=== PATIENT | female | born 1945 | race Caucasian/White ===

== ENCOUNTER 2018-01-16 16:36 | Inpatient (IN) | payer MEDICARE, OTHER ==
[~2018-01-16 16:36] MED LIST: ISOVUE-370 76%-LOCM 1 ML ONE
[2018-01-16 17:04] LABS: Hemoglobin 8.2 g/dL (12.0-16.0); Mean Corpuscular HGB CONC 33.2 g/dL (32.0-36.0); Mean Corpuscular Hemoglobin 37.2 pg (27.0-31.0); Mean Platelet Volume 8.2 fL (7.4-10.4); Platelet Count 529 thou/uL (130-400); RBC Distribution Width 16.9 % (11.5-14.5); Red Blood Cell (RBC) Count 2.19 mill/uL (4.20-5.40); White Blood Cell (WBC) Count 6.9 thou/uL (4.8-10.8)
--- NOTE | 2018-01-16 17:07 | CT ---
CT OF BRAIN PERFORMED WITHOUT CONTRAST ENHANCEMENT: 01/16/18 HISTORY: Stroke activation, left arm and leg weakness, slurred speech. Ventricular and cisternal system shows some age appropriate change. There is some decreased attenuati on of the periventricular white matter. No signs of any definite evidence for acute infarct, specific ally, no abnormality seen in the right middle cerebral artery territory. No hemorrhage or mass effect . The mastoid air cells and visualized sinuses are clear. IMPRESSION: No acute intracranial abnormalities. Findings telephoned to Dr. Dixon's account management assistant. This was telephoned at 1650 hours. POS: [facility]
[2018-01-16 17:13] LABS: INR-International Normal Ratio 1.4; Prothrombin Time 17.2 SEC (12.0-14.7)
[2018-01-16 17:14] LABS: PTT 43.6 SEC (22.9-36.1)
[2018-01-16 17:19] LABS: ALT (SGPT) 10 U/L (8-55); AST (SGOT) 13 U/L (5-34); Albumin 4.1 g/dL (3.4-4.8); Alkaline Phosphatase 104 U/L (40-150); Anion Gap 13 mmol/L (10-20); BUN (Urea Nitrogen) 38 mg/dL (9.8-20.1); Bilirubin, Total 0.8 mg/dL (0.2-1.2); CK (CPK) 279 U/L (29-168); Calc. Creatinine Clearance 0 mL/min (70-130); Calcium 9.7 mg/dL (7.8-10.44); Carbon Dioxide 18 mmol/L (23-31); Chloride 103 mmol/L (98-107); Estimated GFR-MDRD 23; Globulin 4.5 g/dL (2.4-3.5); Glucose 155 mg/dL (80-115); Protein, Total 8.6 g/dL (6.0-8.3); Sodium 130 mmol/L (136-145)
[2018-01-16 17:21] LABS: Anisocytosis SLIGHT = 6-15 cells (100X) (0-5/hpf); Band 6 % (5-11); Lymphocytes 28 % (21-51); MDiff Complete? YES; Metamyelocyte 1 % (0-0); Monocytes 8 % (0-10); Neutrophil 57 % (42-75); PLT Morphology Comment Appears Increased
[2018-01-16 17:22] LABS: CKMB 2.5 ng/mL (0-6.6); Troponin I Less than 0.010 ng/mL (< 0.028)
[2018-01-16 17:55] LABS: Bilirubin Negative (Negative); Blood, Urine Large (Negative); Clarity TURBID (Clear); Glucose, Urine (Dipstick) 100 mg/dL (Negative); Leukocyte Large (Negative); Nitrite Positive (Negative); Protein, Urine (Dipstick) 100 mg/dL (Neg-Trace); pH, Urine 5.5 (5.0-9.0)
[2018-01-16 17:58] LABS: Bacteria/HPF 4+ HPF (None Seen); Hyaline Casts/LPF 4-6 HYALINE CAST LPF (0-3 Hyaline); Pathc Cast-AUWi Flag 1.52 (0-2.49); Squamous Epithelial 0-3 HPF (0-3)
--- NOTE | 2018-01-16 18:05 | RAD ---
RADIOGRAPH CHEST 1 VIEW: 01/16/18 HISTORY: 72-year-old female experiencing altered mental status. FINDINGS: There is cardiomegaly. There is no evidence of air space density, pulmonary edema, or pneumothorax. T he lateral costophrenic angles are sharp. IMPRESSION: 1) No acute pulmonary findings. 2) Cardiomegaly without congestive heart failure. glenny [] POS: [facility]
[2018-01-16] MEDS ORDERED: Piperacillin/Tazobactam 4.5 GM VIAL ONE (18:07)
[2018-01-16] MEDS ORDERED: Acetaminophen 500 MG TAB ONE (18:07)
[2018-01-16] MEDS ORDERED: Senokot 8.6 MG TAB PO PRN ×2 (18:26)
[2018-01-16] MEDS ORDERED: Ondansetron HCl/PF 4 MG/2 ML Vial IVP PRN (18:26)
[2018-01-16] MEDS ORDERED: Loratadine 10 MG TAB PO PRN (18:26)
[2018-01-16] MEDS ORDERED: Calcium Carbonate 500 MG ChewTAB PO PRN (18:26)
[2018-01-16] MEDS ORDERED: hydrALAZINE 20 MG/ML VIAL SLOW IVP PRN (18:26)
[2018-01-16] MEDS ORDERED: Nitroglycerin 0.4 MG TAB (25 Tab Bottle) SL PRN (18:26)
[2018-01-16] MEDS ORDERED: Bisacodyl 5 MG TAB PO PRN ×2 (18:26)
[2018-01-16] MEDS ORDERED: Mag-Al 1200 mg/1200 mg/30 ML UDCUP PO PRN (18:26)
[2018-01-16] MEDS ORDERED: Docusate 100 MG CAP PO PRN (18:26)
[2018-01-16] MEDS ORDERED: Benzonatate 100 MG CAP PO PRN (18:26)
[2018-01-16] MEDS ORDERED: cloNIDine 0.1 MG TAB PO PRN (18:26)
--- NOTE | 2018-01-16 18:33 | CT ---
CTA NECK WITH 3D VOLUME RENDERING CTA HEAD WITH 3D VOLUME RENDERING 01/16/18 CLINICAL HISTORY: Left upper and lower extremity weakness with slurred speech. FINDINGS: Scattered atherosclerosis is seen within the major arterial system of the neck without high grade florencio nosis or occlusion of the bilateral common or cervical internal carotid arteries. Right subclavian ar arabella is partially obscured by streak artifact from contrast, although is grossly patent. Mild calcifi cation at its proximal aspect is seen. Left subclavian artery is patent. evaluation of the bilateral vertebral arteries reveals no high grade stenosis or occlusion, with convergence into a small caliber , patent basilar artery. No high grade stenosis or occlusion involving [place]. No discrete intracranial aneurysm. There is calcification at each carotid siphon. Partial visualization of increased density at the right hilum may relate to coalescence of partially imaged vasculature although is incompletely assessed. There are a few punctate ground glass nodular o pacities at the upper lung zones, nonspecific and incompletely characterized on the basis of this exa m. There is osseous degenerative changes. IMPRESSION: Scattered atherosclerosis without high grade stenosis or occlusion involving the major arterial syste m of head and neck. Telephone call placed to ER physician, Joey Dixon at 1738 hours, 01/16/18 Code CR POS: [facility]
[2018-01-16] MEDS ORDERED: HumaLOG 300 UNITS/3 ML VIAL SC PRN (19:23)
[2018-01-16] MEDS ORDERED: Dextrose 5% in Water 1,000 ML IV PRN (19:23)
[2018-01-16] MEDS ORDERED: Dextrose 50% Abboject 50 ML SYRINGE SLOW IVP PRN (19:23)
[2018-01-16] MEDS ORDERED: VANCOMYCIN IVPB PRN (19:38)
[2018-01-16] MEDS ORDERED: PIPERACILLIN IVPB PRN (19:38)
[2018-01-16] MEDS ORDERED: TAZOBACTAM IVPB PRN (19:38)
--- NOTE | 2018-01-16 20:11 | RAD ---
LEFT HIP TWO/THREE VIEW SERIES 01/16/18 CLINICAL HISTORY: Left hip pain. FINDINGS: There is moderate osteoarthritis of the left hip. No acute fracture. Incidental note of degenerative changes of the symphysis pubis. Vascular calcifications are present. IMPRESSION: Moderate left hip joint osteoarthritis. No acute fracture. POS: [facility]
[2018-01-16 20:51] LABS: Troponin I Less than 0.010 ng/mL (< 0.028)
[2018-01-16] MEDS ORDERED: Famotidine/PF 20 mg/2ml Vial SLOW IVP SCH (21:00)
[2018-01-16] MEDS ORDERED: valACYclovir 500 MG TAB PO SCH (21:00)
[2018-01-16] MEDS ORDERED: Vancomycin HCl 1 GM in Premix Bag 1 BAG IVPB SCH (21:00)
[2018-01-16 23:58] LABS: Troponin I 0.012 ng/mL (< 0.028)
[2018-01-17] MEDS: Atorvastatin Calcium 10 MG TAB PO SCH ×2 (01:08→21:43)
[2018-01-17] MEDS: Heparin 5,000 UNITS/ML VIAL SC SCH ×3 (01:08→21:43)
[2018-01-17] MEDS ORDERED: Vancomycin HCl 1 GM in Premix Bag 1 BAG IVPB SCH ×2 (01:15→20:00)
[2018-01-17] MEDS: Sodium Chloride 0.9% 1,000 ML IV SCH ×4 (01:38→21:04)
[2018-01-17] MEDS: Piperacillin/Tazobactam 2.25 GM in Sodium Chloride 0.9% 100 ML IVPB SCH ×4 (01:51→21:08)
[2018-01-17 02:23] VITALS: BMI 34.9
[2018-01-17] MEDS: traMADol HCl 50 MG TAB PO PRN ×3 (02:49→15:42)
[2018-01-17 06:41] LABS: Hemoglobin 6.1 g/dL (12.0-16.0); Mean Corpuscular HGB CONC 34.7 g/dL (32.0-36.0); Mean Corpuscular Hemoglobin 37.7 pg (27.0-31.0); Mean Platelet Volume 8.1 fL (7.4-10.4); Platelet Count 408 thou/uL (130-400); RBC Distribution Width 16.8 % (11.5-14.5); Red Blood Cell (RBC) Count 1.61 mill/uL (4.20-5.40); White Blood Cell (WBC) Count 4.3 thou/uL (4.8-10.8)
[2018-01-17 06:51] LABS: ALT (SGPT) 12 U/L (8-55); AST (SGOT) 20 U/L (5-34); Albumin 3.2 g/dL (3.4-4.8); Alkaline Phosphatase 88 U/L (40-150); Anion Gap 12 mmol/L (10-20); BUN (Urea Nitrogen) 33 mg/dL (9.8-20.1); Bilirubin, Total 0.7 mg/dL (0.2-1.2); Calc. Creatinine Clearance 47 mL/min (70-130); Calcium 8.6 mg/dL (7.8-10.44); Carbon Dioxide 17 mmol/L (23-31); Chloride 107 mmol/L (98-107); Estimated GFR-MDRD 27; Globulin 3.6 g/dL (2.4-3.5); Glucose 129 mg/dL (80-115); Potassium 3.5 mmol/L (3.5-5.1); Protein, Total 6.8 g/dL (6.0-8.3); Sodium 132 mmol/L (136-145)
[2018-01-17 07:27] LABS: Band 23 % (5-11); Bite Cells SLIGHT = 2-5 cells (100X) (0-1/hpf); Lymphocytes 24 % (21-51); MDiff Complete? YES; Monocytes 14 % (0-10); Neutrophil 38 % (42-75); PLT Morphology Comment Appears Increased; Polychromasia SLIGHT = 2-3 cells (100X) (0-2/hpf); Reactive Lymphocytes 1 % (0-10)
--- NOTE | 2018-01-17 07:51 | HP ---
PRIMARY CARE PHYSICIAN: Dr. Lopez De La Torre, Donny. CHIEF COMPLAINT: Altered mental status and unilateral weakness. HISTORY OF PRESENT ILLNESS: Ms. Phelps is a pleasant 72-year-old female with past me dical history of Hodgkin's lymphoma, status post chemotherapy over at [facility], as well as histo ry of atrial fibrillation and DVT of upper extremity as well as pulmonary embolism during chemotherap y who presented to the emergency room with above-mentioned complaints. History is mainly obtained by the patient herself who is more awake and alert, but it is also supplemented by family members as th e patient is still quite weak. According to the family members, she was at her baseline day before yesterday. They have noticed ria t she has been complaining of headache on and off for the last 6 weeks or so. Family went to check o n her today and she was found sitting in her chair facing the wall, immobile and staring into space a nd altered. She was not able to answer their questions or The patient's family also reported that she was found to have left-sided weakness including arm and l eg as well as numbness and difficulty speaking around 13:30 today. Symptoms improved by the time she was brought to the emergency room, but since then she has waxing and waning of her speech problems a nd left-sided weakness. Her NIH score initially was 7 and now it is 10. However, her altered mental status has completely resolved and she is awake, alert, oriented x3. She does endorse some increase d frequency, but denies any other recent illnesses. She was treated for a urinary tract infection ab out 2 months ago and has history of renal stones. 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 In regards to her lymphoma, she follo ws up at [facility] and is scheduled to get a follow up next month. There is a new adrenal mass r eportedly. In the emergency room upon presentation, she was febrile with a temperature of 101 and tachycardic in the 110s. Her workup included basic lab work which showed hemoglobin of 8.2 and serum chemistry wit h BUN 38, creatinine 2.13. Her urinalysis was consistent with urinary tract infection. Various imag ing studies were done including a CT scan of the brain and CT angiogram of the head which were both u nremarkable. Scattered atherosclerosis was seen in the major arteries of the head. Chest x-ray was unremarkable as well. She was in the ER, she was given IV antibiotic as well as IV fluids, namely vancomycin and Zosyn as w ell as aspirin in the emergency room. Shortly after receiving fluids, her mentation has improved. S he is now being admitted to stroke floor for altered mental status: Rule out cerebrovascular acciden t as well as sepsis secondary to urinary tract infection. PAST MEDICAL HISTORY: 1. Hypertension. 2. History of Hodgkin's lymphoma status post chemotherapy 5 years ago as well as stem cell transplan tation. Follows up at [facility]. 3. History of atrial fibrillation. 4. History of pulmonary embolism during chemotherapy. 5. History of DVT of upper extremity during chemotherapy. 6. Osteopenia. 7. Obesity. 8. Diabetes mellitus type 2. 9. History of hypokalemia. 10. Kidney stones. PAST SURGICAL HISTORY: 1. Lithotripsy multiple times. 2. Cholecystectomy. 3. Hysterectomy. PSYCHIATRIC HISTORY: Depression. SOCIAL HISTORY: She lives at home alone and is otherwise mobile. No history of drug, tobacco or alc ohol abuse. FAMILY HISTORY: No significant family history of premature coronary artery disease or stroke. ALLERGIES: CODEINE, LISINOPRIL, MEPERIDINE. CURRENT MEDICATIONS: Biotin 2500 mcg 2 tablets daily, turmeric once a day, Zofran as needed, potassi um chloride 10 mEq b.i.d., dicyclomine 20 mg q.6 hours p.r.n., tramadol every 50 mg q.6 hours p.r.n., glipizide 5 mg daily, vitamin D daily, Advil every day as needed for headache. REVIEW OF SYSTEMS: The following complete review of systems was negative, unless otherwise mentioned in the HPI or below: Constitutional: Weight loss or gain, ability to conduct usual activities. Sk in: Rash, itching. Eyes: Double vision, pain. ENT/Mouth: Nose bleeding, neck stiffness, pain, te nderness. Cardiovascular: Palpitations, dyspnea on exertion, orthopnea. Respiratory: Shortness of breath, wheezing, cough, hemoptysis, fever or night sweats. Gastrointestinal: Poor appetite, abdom inal pain, heartburn, nausea, vomiting, constipation, or diarrhea. Genitourinary: Urgency, frequenc y, dysuria, nocturia. Musculoskeletal: Pain, swelling. Neurologic/Psychiatric: Anxiety, depressio n. Allergy/Immunologic: Skin rash, bleeding tendency. LABORATORY: CBC shows WBC 6.9 without any left shift, platelet of 529, hemoglobin 8.2, hematocrit 24 .5. Serum chemistry shows sodium 130, bicarbonate 18, BUN 38, creatinine 2.13, blood sugar 155. Lac tic acid 2.0. Creatinine kinase 279. Cardiac enzymes normal. BNP 107. Urinalysis showed proteinur ia, glucosuria, blood, nitrite, leukocyte esterase, and multiple bacteria. CT scan of the brain by m y review is negative for any acute intracranial abnormalities. CT angio of [place] whic h showed scattered atherosclerosis without high-grade stenosis or occlusion involving the major arter ial system of head and neck. Chest x-ray by my review is negative for any pulmonary effusion, edema or infiltrate. Cardiomegaly is seen. PHYSICAL EXAMINATION: VITAL SIGNS: Upon presentation, heart rate 109, blood pressure 130/48, respirations 20, temperature 101.6, saturating 100% on room air. GENERAL: No acute distress. She appears pale, but is able to follow simple commands. Opens her eye s and answers the questions appropriately. She is able to state her name and where she is and the da te almost correct. HEENT: Mucous membranes are slightly dry. No oropharyngeal exudate or erythema. Head is normocepha lic, atraumatic. Pupils equal, reactive to light and accommodation. Extraocular movement intact. NECK: Supple without any lymphadenopathy, JVD or bruit. CHEST: Clear to auscultation without any wheezing, rales or rhonchi. Rate and rhythm is regular wit hout any murmur, rubs or gallops. ABDOMEN: Soft, nontender, nondistended, positive bowel sounds. EXTREMITIES: Free of any cyanosis, clubbing, or edema. NEUROLOGIC: The patient's speech is quite clear at this time. Cranial nerves II-XII grossly intact. She does have some sensory deficits, but they vary during my examination. She does have definitive left upper arm weakness. Her strength is about 2/5 in left arm and forearm and hand. Bilateral low er extremity weakness, left more than right, has also noticed. PSYCHIATRIC: Normal affect. SKIN: Free of any rashes or bruises. I feel warm and dry to touch. CODE STATUS: FULL CODE. Discussed with the patient and her family present in the room. IMPRESSION AND PLAN: 1. Left-sided weakness and dysarthria. The patient most likely has suffered acute stroke. We will admit her to the stroke floor and continue with a daily dose of aspirin. We will initiate stroke pro tocol with stroke team as well as Neurology consultations and obtain MRI of the brain along with a ca rotid Doppler ultrasound, and transthoracic echocardiogram. Also check a lipid panel and start her o n cholesterol medications. We will start her on statins. OT, PT as well as speech evaluation will b e initiated as well. She will be on telemetry monitoring. 2. Sepsis secondary to urinary tract infection. Given the patient's history of Hodgkin's lymphoma a nd chemotherapy: We will treat her with broad spectrum IV antibiotics until the cultures are resulte d. She has received vancomycin and Zosyn in the Emergency Room, but seems to have some reaction to v ancomycin. We will stop the vancomycin for now and continue with Zosyn. Urine culture and blood cul ture have been obtained. The patient does not seem to have any evidence to suggest pneumonia or bindu rointestinal illness. Most likely source is urine at this time. Continue with generous IV fluid hyd ration. We will recheck labs in the morning. 3. Acute renal insufficiency. It seems like the patient has been seen by Nephrology in the past. S he most likely has chronic kidney disease. She has also been taking Advil on an almost daily basis. The patient is instructed to stop any nonsteroidal anti-inflammatory drugs at this time. We will mo nitor her renal function. She has received contrast in the emergency room, and we will avoid any fur ther nephrotoxic medications at this time. 4. Altered mental status. It seems multifactorial at this time. She clearly has sepsis secondary t o urinary tract infection and she will also be worked up for cerebrovascular accident rule out at thi s time. 5. Hyponatremia, mild, most likely secondary to poor p.o. intake and dehydration. We will continue the IV fluids and monitor. 6. Macrocytic anemia. The patient does not seem to be on any supplements. This will be monitored c losely and we will transfuse if hemoglobin is less than 7. Further workup will be carried out in the outpatient setting. 7. History of Hodgkin's lymphoma with a new adrenal mass. I do not have access to the records from [facility]. At this time, she will continue to follow up at [facility]. She seems to be on Valtrex, which most likely is a prophylactic medication for her. We will continue that for now. She is also on Diflucan, which we will continue as well. 8. History of hypertension. The patient's blood pressure is currently controlled. We will add p.r. n. antihypertensive. She does not seem to be on any medication for the blood pressure. 9. Diabetes mellitus type 2. She takes glipizide which we will resume once her oral intake is adequ ate. For now, we will cover her with insulin sliding scale with frequent Accu-Cheks. 10. Deep venous thrombosis and gastrointestinal prophylaxis. We will use heparin in the light of ac brian on chronic kidney disease. 11. Code status: FULL CODE. Discussed with the patient. 12. Add pain medication orders and supportive care. DISPOSITION: Ms. Phelps is currently being admitted to stroke floor for rule out CVA as well a s for treatment of sepsis. Estimated length of stay is at least 2-3 midnight. Further management wi ll depend upon her clinical course.
[2018-01-17] MEDS ORDERED: Fluconazole 100 MG TAB PO SCH ×2 (09:00→11:30)
[2018-01-17] MEDS: Aspirin 325 mg Enteric Coated Tablet PO SCH (10:10)
[2018-01-17] MEDS: Pantoprazole 40 MG VIAL IVP SCH (10:11)
--- NOTE | 2018-01-17 13:21 | PDOC.PN ---
- Subjective Encounter Start Date: 01/17/18 Encounter Start Time: 13:16 Subjective: feels OK.No new complaints but very sleepy -: family at bedisde & report that she is not moving left side - Objective Resuscitation Status: Resuscitation Status FULL:Full Resuscitation MAR Reviewed: Yes Vital Signs & Weight: Vital Signs (12 hours) Temp Pulse Pulse Pulse Pulse Resp BP 01/17/18 12:24 100.1 F H 88 18 01/17/18 11:51 100.5 F H 92 20 01/17/18 08:20 100.1 F H 90 18 01/17/18 07:52 100.8 F H 90 20 01/17/18 07:34 88 88 151/59 H 01/17/18 03:02 100.1 F H 101 H 18 BP BP BP Pulse Ox 01/17/18 12:24 129/53 L 01/17/18 11:51 137/50 L 98 01/17/18 08:20 97 01/17/18 07:52 151/59 H 99 01/17/18 07:34 135/53 L 01/17/18 03:02 149/65 H 94 L Weight Admit Weight 229 lb 9.6 oz Weight 229 lb 9.6 oz I&O: 01/16/18 01/17/18 01/18/18 06:59 06:59 06:59 Intake Total 1250 0 Balance 1250 0 Result Diagrams: 01/17/18 05:44 01/17/18 05:44 Additional Labs: Accuchecks 01/17/18 01/17/18 11:11 05:52 POC Glucose 125 H 150 H Microbiology 01/16/18 17:45 Urine Straight Catheter Urine Culture - Preliminary Presumptive Kleb/Enterobacter 01/16/18 17:22 Venous blood - Right Hand Blood Culture - Preliminary Specimen has been received and culture in progress. No Growth to date. 01/16/18 17:22 Venous blood - Left Hand Blood Culture - Preliminary Specimen has been received and culture in progress. No Growth to date. Laboratory Tests 01/16/18 01/16/18 01/16/18 16:56 16:56 20:19 Creatinine 2.13 H Troponin I Less than 0.010 Less than 0.010 01/16/18 01/17/18 23:23 05:44 Creatinine 1.83 H Troponin I 0.012 Phys Exam - Physical Examination Constitutional: NAD pale HEENT: PERRLA, moist MMs, sclera anicteric, oral pharynx no lesions Neck: no JVD Respiratory: no wheezing, no rales, no rhonchi, clear to auscultation bilateral Cardiovascular: RRR, no significant murmur Gastrointestinal: soft, non-tender, no distention, positive bowel sounds Musculoskeletal: no edema, pulses present Neurological: non-focal, normal sensation, moves all 4 limbs Psychiatric: normal affect, A&O x 3 Skin: no rash Dx/Plan (1) Anemia Code(s): D64.9 - ANEMIA, UNSPECIFIED Status: Acute Qualifiers: Anemia type: bone marrow failure Bone marrow failure anemia type: other bone marrow failure Qualified Code(s): D61.89 - Other specified aplastic anemias and other bone marrow failure syndromes Comment: Acute drop.taz acute on chronic (2) Sepsis Code(s): A41.9 - SEPSIS, UNSPECIFIED ORGANISM Status: Acute (3) Altered mental status Code(s): R41.82 - ALTERED MENTAL STATUS, UNSPECIFIED Status: Acute Comment: Taz due to Sepsis.. (4) UTI (urinary tract infection) Status: Acute Qualifiers: Urinary tract infection type: acute cystitis Hematuria presence: with hematuria Qualified Code(s): N30.01 - Acute cystitis with hematuria (5) FELIX (acute kidney injury) Code(s): N17.9 - ACUTE KIDNEY FAILURE, UNSPECIFIED Status: Acute (6) Hodgkin lymphoma Code(s): C81.90 - HODGKIN LYMPHOMA, UNSPECIFIED, UNSPECIFIED SITE Status: Chronic Qualifiers: Hodgkin lymphoma type: unspecified type (7) Left-sided weakness Code(s): R53.1 - WEAKNESS Status: Acute - Plan continue antibiotics, PT/OT, respiratory therapy, incentive spirometry, out of bed/ambulate, DVT proph w/SCDs Transfuse 2 units PRBC,taz BM failure from Hodgkins.Check FOBT -: Cont Zosyn and vancomycin.Taz d/t UTI.Follow Cx results -: check LE to r/o DVT as h/o PE/DVT. -: MRI pending.cont stroke protocol w ASA+statin.Neurology recs pending -: Daily labs. Supportive care.OT/PT/FUR TANNER * . Review of Systems - Review of Systems Constitutional: weakness, malaise. negative: fever, chills, sweats, other ENT: negative: Ear Pain, Ear Discharge, Nose Pain, Nose Discharge, Nose Congestion, Mouth Pain, Mouth Swelling, Throat Pain, Throat Swelling, Other Respiratory: negative: Cough, Dry, Shortness of Breath, Hemoptysis, SOB with Excertion, Pleuritic Pain, Sputum, Wheezing Cardiovascular: negative: chest pain, palpitations, orthopnea, paroxysmal nocturnal dyspnea, edema, light headedness, other Gastrointestinal: negative: Nausea, Vomiting, Abdominal Pain, Diarrhea, Constipation, Melena, Hematochezia, Other Genitourinary: negative: Dysuria, Frequency, Incontinence, Hematuria, Retention , Other Musculoskeletal: negative: Neck Pain, Shoulder Pain, Arm Pain, Back Pain, Hand Pain, Leg Pain, Foot Pain, Other Skin: negative: Rash, Lesions, Gennaro, Bruising, Other Neurological: negative: Weakness, Numbness, Incoordination, Change in Speech, Confusion, Seizures, Other - Medications/Allergies Allergies/Adverse Reactions: Allergies Allergy/AdvReac Type Severity Reaction Status Date / Time bleomycin Allergy Verified 01/17/18 05:50 codeine Allergy Verified 01/17/18 02:05 lisinopril Allergy Verified 01/17/18 02:05 meperidine [From Demerol] Allergy Verified 01/17/18 02:05 Medications: Current Medications Acetaminophen (Tylenol) 650 mg PO Q4H PRN PRN Reason: Headache/Fever or Pain Al Hydroxide/Mg Hydroxide (Maalox) 30 ml PO Q6H PRN PRN Reason: Heartburn or Indigestion Aspirin (Ecotrin) 325 mg PO DAILY [facility] Last Admin: 01/17/18 10:10 Dose: 325 mg Atorvastatin Calcium (Lipitor) 10 mg PO HS [facility] Last Admin: 01/17/18 01:08 Dose: 10 mg Benzonatate (Tessalon) 100 mg PO Q4H PRN PRN Reason: Cough Bisacodyl (Dulcolax) 10 mg PO DAILYPRN PRN PRN Reason: Constipation Calcium Carbonate (Tums) 1,000 mg PO Q4H PRN PRN Reason: Heartburn or Indigestion Clonidine (Catapres) 0.1 mg PO Q4H PRN PRN Reason: Systolic BP > 160 Dextrose/Water (Dextrose 50%) 25 gm SLOW IVP PRN PRN PRN Reason: Hypoglycemia Docusate Sodium (Colace) 100 mg PO BIDPRN PRN PRN Reason: Constipation Fluconazole (Diflucan) 100 mg PO DAILY [facility] Glucagon (Glucagon) 1 mg IM PRN PRN PRN Reason: Hypoglycemia Guaifenesin (Robitussin Sf) 200 mg PO Q4H PRN PRN Reason: Cough Heparin Sodium (Porcine) (Heparin) 5,000 units SC BID [facility] Last Admin: 01/17/18 10:11 Dose: 5,000 units Hydralazine HCl (Apresoline) 10 mg SLOW IVP Q4H PRN PRN Reason: Systolic BP > 170 Sodium Chloride (Normal Saline 0.9%) 1,000 mls @ 100 mls/hr IV .Q10H [facility] Last Admin: 01/17/18 06:42 Dose: Not Given Piperacillin Sod/Tazobactam (Sod 2.25 gm/ Sodium Chloride) 100 mls @ 200 mls/ hr IVPB Q6HR [facility] Last Admin: 01/17/18 06:44 Dose: 100 mls Dextrose/Water (D5w) 1,000 mls @ 0 mls/hr IV .Q0M PRN; As Directed PRN Reason: Hypoglycemia Insulin Human Lispro (Humalog) 0 units SC .MODERATE SLIDING SC PRN PRN Reason: Moderate Correctional Scale Insulin Human Lispro (Humalog) 0 units SC .BEDTIME SLIDING SC PRN PRN Reason: Bedtime Correctional Scale Loratadine (Claritin) 10 mg PO DAILYPRN PRN PRN Reason: Sinus Symptoms Miscellaneous Medication (Pharmacy To Dose) 1 each IVPB PRN PRN PRN Reason: UTI Nitroglycerin (Nitrostat) 0.4 mg SL Q5MIN PRN PRN Reason: Chest Pain Ondansetron HCl (Zofran) 4 mg IVP Q6H PRN PRN Reason: Nausea/Vomiting Pantoprazole Sodium (Protonix) 40 mg IVP DAILY [facility] Last Admin: 01/17/18 10:11 Dose: 40 mg Senna (Senokot) 2 tab PO HSPRN PRN PRN Reason: Constipation Sodium Chloride (Flush - Normal Saline) 10 ml IV DAILY [facility] Last Admin: 01/17/18 10:12 Dose: Not Given Tramadol HCl (Ultram) 50 mg PO Q6H PRN PRN Reason: Pain >3 Last Admin: 01/17/18 10:10 Dose: 50 mg
--- NOTE | 2018-01-17 15:17 | ULT ---
BILATERAL LOWER EXTREMITY VENOUS DOPPLER ULTRASOUND: HISTORY: Bilateral leg pain. TECHNIQUE: Emanuel scale ultrasound with color flow and spectral Doppler imaging of the deep venous systems of the lower extremities performed bilaterally. FINDINGS: There is good flow, compression, and augmentation seen in the common femoral, femoral, deep femoral, popliteal, posterior tibial, and greater saphenous veins on either side. IMPRESSION: No evidence of deep vein thrombosis in either lower extremity. POS: OFF
--- NOTE | 2018-01-17 19:54 | CON ---
DATE OF CONSULTATION: 01/17/2018 REFERRING PROVIDER: Dr. Mireille Uribe. REASON FOR CONSULTATION: Altered mental status. HISTORY OF PRESENT ILLNESS: Ms. Phelps is a pleasant 72-year-old female who has been concerned for evaluation of altered mental status. History is obtained from patient's medical chart as patient is not able to provide and there are no family members present at bedside. Apparently, maci cheng patient has a history of Hodgkin's lymphoma for which she has undergone chemotherapy. She has als o developed atrial fibrillation and DVT of upper extremity and pulmonary embolism during chemotherapy . She was brought in by her family members after she was noted to be confused. Per dictated H&P not e, patient was at her baseline on day before admission, family had found her sitting on chair facing the wall immobile and staring into space and altered. She was not able to answer their questions. Maci mai also felt that she was somewhat weak on her left side and had difficulty with talking, which prom pted them to bring her to the [facility]. Since being here, her symptoms are waxing a nd waning and that she becomes more alert and then becomes very drowsy and lethargic. On admission, she is noted to have urinary tract infection and anemia for which she is undergoing blood transfusion . Per nurse assisting of the patient, there has not been any seizure type activity noted. Nurse rep orted that she is weak all over. She does wake up to verbal stimuli, but goes back to sleep. Past medical history, past surgical history, social history, family history, current medications, and allergies are reviewed from patient's dictated H&P note done by Dr. Mireille Uribe. REVIEW OF SYSTEMS: Unable to perform. PHYSICAL EXAMINATION: VITAL SIGNS: Blood pressure of 129/53, pulse of 92, temperature of 100.1, respirations of 18, O2 sat s of 98% on room air, T-max of 100.8. GENERAL: Drowsy and lethargic appearing female in no apparent distress. RESPIRATORY: Clear to auscultation bilaterally. CARDIOVASCULAR: Regular rate and rhythm. NEUROLOGIC: Mental status: The patient is drowsy appearing. She is very lethargic. She does wake up to verbal stimuli, but goes back to sleep within seconds. She is able to state her first and last name. She is able to state her age. She does not follow any commands. Her speech appeared clear w hen she did say a few words. Cranial nerves: Pupils are 3 mm and reactive. Face appears symmetric. Motor exam showed normal tone and bulk. She spontaneously moves both upper and lower extremities. She appeared weak all over. Gait, Romberg coordination could not be tested. LABORATORY DATA: Reviewed, which included CBC, coag panel, CMP, urinalysis, which is significant for WBC of 4.3, hemoglobin 6.1, hematocrit 17.5, platelet count of 408. PT of 17.2, INR 1.4, PTT of 43. 6. Sodium 132, BUN of 33, creatinine of 1.83. Urinalysis showed too numerous to count wbc's, large leukocyte esterase, positive nitrites and 4+ bacteria. Urine culture was positive for Klebsiella and Enterobacter. Blood cultures have been negative. IMAGING STUDIES: CT head without contrast was reviewed which showed no acute intracranial abnormalit y. CT angiogram of the head and neck were reviewed, which showed no intracranial or extracranial vas cular abnormality. IMPRESSION: 1. Altered mental status, likely toxic metabolic encephalopathy. 2. Urinary tract infection. 3. Sepsis. PLAN: Ms. Phelps is a 72-year-old female who has presented with altered mental statu s and possible left-sided weakness. On my exam, I did not appreciate any focal weakness; in my opini on, she is weak all over. Her confusion and generalized weakness is likely secondary to multifactori al that includes urinary tract infection, anemia, acute renal insufficiency. I would recommend adalberto nuing current medical management. Obtain MRI brain without contrast when medically stable. Continue supportive care. Thank you for consultation.
[2018-01-18] MEDS: Piperacillin/Tazobactam 2.25 GM in Sodium Chloride 0.9% 100 ML IVPB SCH ×4 (00:46→17:33)
[2018-01-18 05:24] LABS: Anion Gap 15 mmol/L (10-20); BUN (Urea Nitrogen) 28 mg/dL (9.8-20.1); Calc. Creatinine Clearance 53 mL/min (70-130); Calcium 8.5 mg/dL (7.8-10.44); Carbon Dioxide 16 mmol/L (23-31); Chloride 106 mmol/L (98-107); Estimated GFR-MDRD 32; Glucose 79 mg/dL (83-110); Potassium 3.5 mmol/L (3.5-5.1); Sodium 133 mmol/L (136-145)
[2018-01-18] MEDS: Diabetic Tussin 200 MG/10 ML UDCUP PO PRN (05:26)
[2018-01-18 06:16] LABS: Anisocytosis MODERATE=16-30 cells (100X) (0-5/hpf); Band 11 % (5-11); Hemoglobin 8.3 g/dL (12.0-16.0); Lymphocytes 32 % (21-51); MDiff Complete? YES; Mean Corpuscular HGB CONC 35.3 g/dL (32.0-36.0); Mean Corpuscular Hemoglobin 35.9 pg (27.0-31.0); Mean Platelet Volume 8.2 fL (7.4-10.4); Monocytes 12 % (0-10); Neutrophil 44 % (42-75); Platelet Count 413 thou/uL (130-400); RBC Distribution Width 19.5 % (11.5-14.5); Red Blood Cell (RBC) Count 2.32 mill/uL (4.20-5.40); White Blood Cell (WBC) Count 3.9 thou/uL (4.8-10.8)
[2018-01-18] MEDS: Aspirin 325 mg Enteric Coated Tablet PO SCH (09:34)
[2018-01-18] MEDS: Heparin 5,000 UNITS/ML VIAL SC SCH ×2 (09:34→20:55)
[2018-01-18] MEDS: Fluconazole 100 MG TAB PO SCH (09:34)
[2018-01-18] MEDS: Pantoprazole 40 MG VIAL IVP SCH (09:35)
--- NOTE | 2018-01-18 10:35 | MRI ---
MRI BRAIN: HISTORY: Left arm and leg weakness. FINDINGS: Noncontrast-enhanced brain MRI images obtained at 9:11 a.m. on 01/17/18. Images were sent to [facility] for radiology interpretation at 9:15 a.m. on 01/18/18. Noncontrast-enhanced MRI images of the brain obtained. Images demonstrate areas of signal abnormality in the right frontal, right parietal, and right occipi mukesh and temporooccipital regions. This is compatible with a watershed distribution area of infarctio n. No other intracranial masses or lesions seen. Normal flow voids seen in the major intracranial vessels. IMPRESSION: Acute right watershed distribution area of infarction. Findings called to Félix, the patient's nurse in the stroke unit, at 9:24 a.m. on 01/18/18. CODE CR POS: ALEK
--- NOTE | 2018-01-18 11:05 | PDOC.PN ---
- Subjective Encounter Start Date: 01/18/18 Encounter Start Time: 11:03 Subjective: feels a little better.still not bale to move left arm -: left hand moves a little better -: daughter reports on and off confusion - Objective Resuscitation Status: Resuscitation Status FULL:Full Resuscitation Vital Signs & Weight: Vital Signs (12 hours) Temp Pulse Resp BP Pulse Ox 01/18/18 09:35 99.5 F 87 14 97 01/18/18 07:44 99.5 F 87 14 142/67 H 97 01/18/18 05:33 97 01/18/18 03:56 99.4 F 97 20 136/57 L 97 01/18/18 00:00 98.2 F 90 16 156/75 H 96 Weight Admit Weight 229 lb 9.6 oz Weight 229 lb 9.6 oz I&O: 01/17/18 01/18/18 01/19/18 06:59 06:59 06:59 Intake Total 1250 1000 2137 Balance 1250 1000 2137 Result Diagrams: 01/18/18 04:48 01/18/18 04:48 Additional Labs: Accuchecks 01/18/18 01/17/18 01/17/18 05:24 20:51 16:25 POC Glucose 87 105 100 01/17/18 11:11 POC Glucose 125 H Microbiology 01/16/18 17:45 Urine Straight Catheter Urine Culture - Preliminary Presumptive Kleb/Enterobacter 01/16/18 17:22 Venous blood - Right Hand Blood Culture - Preliminary Coagulase Neg Staphylococcus 01/16/18 17:22 Venous blood - Left Hand Blood Culture - Preliminary Specimen has been received and culture in progress. No Growth to date. Radiology Reviewed by me: Yes (Brain MRI-watershed infract R cerebral cortex) Phys Exam - Physical Examination Constitutional: NAD awake but sleepy.pale HEENT: PERRLA, moist MMs, sclera anicteric, oral pharynx no lesions Neck: no JVD Respiratory: no wheezing, no rales, no rhonchi, clear to auscultation bilateral Cardiovascular: RRR, no significant murmur Gastrointestinal: soft, non-tender, no distention, positive bowel sounds Musculoskeletal: no edema, pulses present left arm and leg weakness,delirium improved Psychiatric: normal affect, A&O x 3 Skin: no rash Dx/Plan (1) Acute CVA (cerebrovascular accident) Code(s): I63.9 - CEREBRAL INFARCTION, UNSPECIFIED Status: Acute Comment: Watershed infarct ,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 (2) UTI (urinary tract infection) Status: Acute Qualifiers: Urinary tract infection type: acute cystitis Hematuria presence: with hematuria Qualified Code(s): N30.01 - Acute cystitis with hematuria (3) FELIX (acute kidney injury) Code(s): N17.9 - ACUTE KIDNEY FAILURE, UNSPECIFIED Status: Acute (4) Sepsis Code(s): A41.9 - SEPSIS, UNSPECIFIED ORGANISM Status: Acute (5) Anemia Code(s): D64.9 - ANEMIA, UNSPECIFIED Status: Resolved Qualifiers: Anemia type: bone marrow failure Bone marrow failure anemia type: other bone marrow failure Qualified Code(s): D61.89 - Other specified aplastic anemias and other bone marrow failure syndromes Comment: Improved with PRBC.monitor.Taz acute on Chronic given H/O Hodgkins (6) Altered mental status Code(s): R41.82 - ALTERED MENTAL STATUS, UNSPECIFIED Status: Resolved Comment: Likcoreen due to Sepsis.. (7) Hodgkin lymphoma Code(s): C81.90 - HODGKIN LYMPHOMA, UNSPECIFIED, UNSPECIFIED SITE Status: Chronic Qualifiers: Hodgkin lymphoma type: unspecified type (8) Left-sided weakness Code(s): R53.1 - WEAKNESS Status: Acute - Plan plan discussed w/ family, continue antibiotics, PT/OT, social psychologist, speech therapy, out of bed/ambulate, DVT proph w/SCDs Cont ASA,statin.Avoid hypotensive episodes.Serial H/H -: cont Zosyn for UTI w Klebseilla & Enterobacter.Final Cx pending -: 10/08 blood Cx taz contaminated.follow final results -: Omncology f/u Saturday at [facility]. -: taz DC by Saturday w HH/rehab * .DC IVF as ECHO shows Diatolic dysfunction * Hemodynamically stable. * Renal Fx improving.monitor Review of Systems - Review of Systems Constitutional: weakness, malaise Eyes: negative: Pain, Vision Change, Conjunctivae Inflammation, Eyelid Inflammation, Redness, Other ENT: negative: Ear Pain, Ear Discharge, Nose Pain, Nose Discharge, Nose Congestion, Mouth Pain, Mouth Swelling, Throat Pain, Throat Swelling, Other Respiratory: negative: Cough, Dry, Shortness of Breath, Hemoptysis, SOB with Excertion, Pleuritic Pain, Sputum, Wheezing Cardiovascular: negative: chest pain, palpitations, orthopnea, paroxysmal nocturnal dyspnea, edema, light headedness, other Gastrointestinal: negative: Nausea, Vomiting, Abdominal Pain, Diarrhea, Constipation, Melena, Hematochezia, Other Genitourinary: negative: Dysuria, Frequency, Incontinence, Hematuria, Retention , Other Musculoskeletal: negative: Neck Pain, Shoulder Pain, Arm Pain, Back Pain, Hand Pain, Leg Pain, Foot Pain, Other Skin: negative: Rash, Lesions, Gennaro, Bruising, Other Neurological: Weakness - Medications/Allergies Allergies/Adverse Reactions: Allergies Allergy/AdvReac Type Severity Reaction Status Date / Time bleomycin Allergy Verified 01/17/18 05:50 codeine Allergy Verified 01/17/18 02:05 lisinopril Allergy Verified 01/17/18 02:05 meperidine [From Demerol] Allergy Verified 01/17/18 02:05 Medications: Current Medications Acetaminophen (Tylenol) 650 mg PO Q4H PRN PRN Reason: Headache/Fever or Pain Al Hydroxide/Mg Hydroxide (Maalox) 30 ml PO Q6H PRN PRN Reason: Heartburn or Indigestion Aspirin (Ecotrin) 325 mg PO DAILY [facility] Last Admin: 01/18/18 09:34 Dose: 325 mg Atorvastatin Calcium (Lipitor) 10 mg PO HS [facility] Last Admin: 01/17/18 21:43 Dose: 10 mg Benzonatate (Tessalon) 100 mg PO Q4H PRN PRN Reason: Cough Bisacodyl (Dulcolax) 10 mg PO DAILYPRN PRN PRN Reason: Constipation Calcium Carbonate (Tums) 1,000 mg PO Q4H PRN PRN Reason: Heartburn or Indigestion Clonidine (Catapres) 0.1 mg PO Q4H PRN PRN Reason: Systolic BP > 160 Dextrose/Water (Dextrose 50%) 25 gm SLOW IVP PRN PRN PRN Reason: Hypoglycemia Docusate Sodium (Colace) 100 mg PO BIDPRN PRN PRN Reason: Constipation Fluconazole (Diflucan) 100 mg PO DAILY [facility] Last Admin: 01/18/18 09:34 Dose: 100 mg Glucagon (Glucagon) 1 mg IM PRN PRN PRN Reason: Hypoglycemia Guaifenesin (Robitussin Sf) 200 mg PO Q4H PRN PRN Reason: Cough Last Admin: 01/18/18 05:26 Dose: 200 mg Heparin Sodium (Porcine) (Heparin) 5,000 units SC BID [facility] Last Admin: 01/18/18 09:34 Dose: 5,000 units Hydralazine HCl (Apresoline) 10 mg SLOW IVP Q4H PRN PRN Reason: Systolic BP > 170 Piperacillin Sod/Tazobactam (Sod 2.25 gm/ Sodium Chloride) 100 mls @ 200 mls/ hr IVPB Q6HR [facility] Last Admin: 01/18/18 05:25 Dose: 100 mls Dextrose/Water (D5w) 1,000 mls @ 0 mls/hr IV .Q0M PRN; As Directed PRN Reason: Hypoglycemia Insulin Human Lispro (Humalog) 0 units SC .MODERATE SLIDING SC PRN PRN Reason: Moderate Correctional Scale Insulin Human Lispro (Humalog) 0 units SC .BEDTIME SLIDING SC PRN PRN Reason: Bedtime Correctional Scale Loratadine (Claritin) 10 mg PO DAILYPRN PRN PRN Reason: Sinus Symptoms Miscellaneous Medication (Pharmacy To Dose) 1 each IVPB PRN PRN PRN Reason: UTI Nitroglycerin (Nitrostat) 0.4 mg SL Q5MIN PRN PRN Reason: Chest Pain Ondansetron HCl (Zofran) 4 mg IVP Q6H PRN PRN Reason: Nausea/Vomiting Pantoprazole Sodium (Protonix) 40 mg IVP DAILY [facility] Last Admin: 01/18/18 09:35 Dose: 40 mg Senna (Senokot) 2 tab PO HSPRN PRN PRN Reason: Constipation Sodium Chloride (Flush - Normal Saline) 10 ml IV DAILY [facility] Last Admin: 01/18/18 09:35 Dose: 10 ml Tramadol HCl (Ultram) 50 mg PO Q6H PRN PRN Reason: Pain >3 Last Admin: 01/17/18 15:42 Dose: 50 mg
--- NOTE | 2018-01-18 17:19 | PRG ---
DATE OF SERVICE: 01/18/2018 SUBJECTIVE: Ms. Phelps reports of some improvement in her strength. She is more awake and vera rt today than she was on yesterday. She denies any headache, chest pain or palpitation. OBJECTIVE: VITAL SIGNS: Blood pressure of 141/66, pulse of 81, temperature of 98.9, respirations are 20 and O2 saturation 92% on room air. GENERAL: A well-developed, well-nourished female in no apparent distress. RESPIRATORY: Clear to auscultation bilaterally. CARDIOVASCULAR: Regular rate and rhythm. NEUROLOGICAL: Mental status: The patient is awake, alert and oriented x3. Speech and language: Fl uent speech. Cranial nerves: Pupils are 3 mm and reactive. Visual saldaña are intact. External mus cles are intact. No nystagmus. Face is symmetric. Tongue and uvula midline. Motor exam showed nor mal tone and bulk with a 4/5 strength in both upper and lower extremities. She is more mobile today in her upper and lower extremities than she was yesterday. LABORATORY DATA: Labs are reviewed, which included CBC and BMP, which is significant for WBC of 2.9, hemoglobin 8.3, hematocrit 23.6 and MCV of 102. Sodium of 133, BUN of 28, creatinine of 1.59, gluco se of 79, otherwise unremarkable. IMAGING STUDIES: MRI brain without contrast was reviewed, which showed patchy right cerebral hemisph ere watershed distribution ischemic infarct. Echocardiogram was also reviewed, which showed an eject ion fraction of 60% to 65% with moderately dilated left atrium and small pericardial effusion without tamponade, otherwise unremarkable. IMPRESSION: 1. Acute right cerebral hemisphere watershed ischemic infarct. 2. Urinary tract infection. 3. Sepsis. 4. Anemia. PLAN: Ms. Phelps is a pleasant 73-year-old female who presented with the worsening c onfusion and left-sided weakness. She is found to have a small patchy distribution acute right cereb ral hemisphere watershed distribution ischemic infarct. This is likely secondary to underlying sepsi s and anemia. At this time, I will recommend continuing current medical management. Continue PT, OT and speech therapy. Continue aspirin 325 mg daily for secondary stroke prevention.
[2018-01-18] MEDS: Atorvastatin Calcium 10 MG TAB PO SCH (20:55)
[2018-01-18] MEDS: Acetaminophen 325 MG TAB PO PRN (21:00)
[2018-01-19] MEDS: Piperacillin/Tazobactam 2.25 GM in Sodium Chloride 0.9% 100 ML IVPB SCH ×5 (00:39→23:25)
[2018-01-19] MEDS: Acetaminophen 325 MG TAB PO PRN ×3 (02:51→17:16)
[2018-01-19 05:15] LABS: Anion Gap 8 mmol/L (10-20); BUN (Urea Nitrogen) 26 mg/dL (9.8-20.1); Calc. Creatinine Clearance 53 mL/min (70-130); Calcium 8.5 mg/dL (7.8-10.44); Carbon Dioxide 21 mmol/L (23-31); Cardiac Risk 5.2 (Less than 4.5); Chloride 107 mmol/L (98-107); Cholesterol 88 mg/dl (< 200 Desired); Estimated GFR-MDRD 32; Glucose 182 mg/dL (83-110); HDL Cholesterol 17 mg/dL (>60 Neg Risk); LDL Cholesterol, Calculated 41 mg/dL; Potassium 3.1 mmol/L (3.5-5.1); Sodium 133 mmol/L (136-145); Triglycerides 150 mg/dL (Less than 150)
[2018-01-19 05:59] LABS: Anisocytosis SLIGHT = 6-15 cells (100X) (0-5/hpf); Band 8 % (5-11); Differential Comment Blast-Like Cell(s); Hemoglobin 7.7 g/dL (12.0-16.0); Lymphocytes 42 % (21-51); MDiff Complete? YES; Mean Corpuscular HGB CONC 35.5 g/dL (32.0-36.0); Mean Corpuscular Hemoglobin 35.3 pg (27.0-31.0); Mean Corpuscular Volume 99.4 fl (81.0-99.0); Monocytes 13 % (0-10); Myelocyte 1 % (0-0); Neutrophil 34 % (42-75); Nucleated RBC 1 % (0); PLT Morphology Comment Appears Adequate; Platelet Count 387 thou/uL (130-400); RBC Distribution Width 18.8 % (11.5-14.5); Red Blood Cell (RBC) Count 2.19 mill/uL (4.20-5.40); Reflex for Review?? YES; White Blood Cell (WBC) Count 2.8 thou/uL (4.8-10.8)
[2018-01-19] MEDS: HumaLOG 300 UNITS/3 ML VIAL SC PRN ×2 (06:51→12:10)
[2018-01-19] MEDS: Sodium Chloride 0.9% 1,000 ML IV SCH ×2 (08:16→20:48)
[2018-01-19] MEDS: Heparin 5,000 UNITS/ML VIAL SC SCH ×2 (08:17→20:49)
[2018-01-19] MEDS: Potassium Chloride 10 MEQ TAB PO SCH ×2 (08:17→17:16)
[2018-01-19] MEDS: Fluconazole 100 MG TAB PO SCH (08:17)
[2018-01-19] MEDS: Aspirin 325 mg Enteric Coated Tablet PO SCH (08:17)
--- NOTE | 2018-01-19 11:01 | PDOC.PN ---
- Subjective Encounter Start Date: 01/19/18 Encounter Start Time: 10:59 Subjective: feels much better today.stood up with PT.able to use Left arm more -: no F/C.no CP/SOB - Objective Resuscitation Status: Resuscitation Status FULL:Full Resuscitation MAR Reviewed: Yes Vital Signs & Weight: Vital Signs (12 hours) Temp Pulse Resp BP Pulse Ox 01/19/18 08:00 97.9 F 80 16 01/19/18 07:47 97.9 F 80 16 114/47 L 100 01/19/18 03:04 97.7 F 85 16 148/70 H 98 01/18/18 23:15 98.5 F 76 16 118/67 98 Weight Admit Weight 229 lb 9.6 oz Weight 229 lb 9.6 oz I&O: 01/18/18 01/19/18 01/20/18 06:59 06:59 06:59 Intake Total 1000 2937 Balance 1000 2937 Result Diagrams: 01/19/18 04:38 01/19/18 04:38 Additional Labs: Accuchecks 01/19/18 01/18/18 01/18/18 05:16 21:01 17:04 POC Glucose 175 H 119 H 102 01/18/18 11:11 POC Glucose 98 Microbiology 01/16/18 17:45 Urine Straight Catheter Urine Culture - Final Escherichia coli 01/16/18 17:22 Venous blood - Right Hand Blood Culture - Final Coagulase Neg Staphylococcus Coagulase Neg Staphylococcus#2 01/16/18 17:22 Venous blood - Right Hand Blood Culture - Preliminary Coagulase Neg Staphylococcus 01/16/18 17:22 Venous blood - Left Hand Blood Culture - Preliminary NO GROWTH AT 48 HOURS Laboratory Tests 01/16/18 01/16/18 01/17/18 16:56 16:56 05:44 Hgb 8.2 L Creatinine 2.13 H 1.83 H 01/17/18 01/18/18 01/18/18 05:44 04:48 04:48 Hgb 6.1 L 8.3 L Creatinine 1.59 H 01/19/18 01/19/18 04:38 04:38 Hgb 7.7 L Creatinine 1.61 H Phys Exam - Physical Examination Constitutional: NAD pale HEENT: PERRLA, moist MMs, sclera anicteric, oral pharynx no lesions Neck: no nodes, no JVD, supple, full ROM Respiratory: no wheezing, no rales, no rhonchi, clear to auscultation bilateral Cardiovascular: RRR, no significant murmur Gastrointestinal: soft, non-tender, no distention, positive bowel sounds Musculoskeletal: no edema, pulses present Neurological: moves all 4 limbs left arm strength better 4/5 Psychiatric: normal affect, A&O x 3 Dx/Plan (1) Acute CVA (cerebrovascular accident) Code(s): I63.9 - CEREBRAL INFARCTION, UNSPECIFIED Status: Acute Comment: Watershed infarct ,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 (2) UTI (urinary tract infection) Status: Acute Qualifiers: Urinary tract infection type: acute cystitis Hematuria presence: with hematuria Qualified Code(s): N30.01 - Acute cystitis with hematuria Comment: cochran sensitive E.Coli (3) FELIX (acute kidney injury) Code(s): N17.9 - ACUTE KIDNEY FAILURE, UNSPECIFIED Status: Acute (4) Sepsis Code(s): A41.9 - SEPSIS, UNSPECIFIED ORGANISM Status: Acute Comment: due to UTI (5) Anemia Code(s): D64.9 - ANEMIA, UNSPECIFIED Status: Resolved Qualifiers: Anemia type: bone marrow failure Bone marrow failure anemia type: other bone marrow failure Qualified Code(s): D61.89 - Other specified aplastic anemias and other bone marrow failure syndromes Comment: Improved with PRBC.monitor.Henry acute on Chronic given H/O Hodgkins (6) Altered mental status Code(s): R41.82 - ALTERED MENTAL STATUS, UNSPECIFIED Status: Resolved Comment: Likley due to Sepsis.. (7) Hodgkin lymphoma Code(s): C81.90 - HODGKIN LYMPHOMA, UNSPECIFIED, UNSPECIFIED SITE Status: Chronic Qualifiers: Hodgkin lymphoma type: unspecified type (8) Left-sided weakness Code(s): R53.1 - WEAKNESS Status: Acute Comment: due to Acute CVA (9) Leucopenia Code(s): D72.819 - DECREASED WHITE BLOOD CELL COUNT, UNSPECIFIED Status: Acute Qualifiers: Leukopenia type: neutropenia Neutropenia type: other Qualified Code(s): D70.8 - Other neutropenia Comment: Likley due to BM failure from Hodgkins exacerbated by physiological stress.monitor - Plan plan discussed w/ family, continue antibiotics, PT/OT, incentive spirometry, out of bed/ambulate, DVT proph w/SCDs cont Rehab inpt and then w HH per Pt & family request.improving -: cont ASA,statin.aggressive monitoring of BP.not on any antihypertensives -: monitor H/H & WBC. may need transfusion again. -: encouraged f/u w Oncology -on saturday at [facility] -: Hemodynamically stable.likley home tomorrow * . Review of Systems - Review of Systems Constitutional: weakness Respiratory: Cough. negative: Dry, Shortness of Breath, Hemoptysis, SOB with Excertion, Pleuritic Pain, Sputum, Wheezing Cardiovascular: negative: chest pain, palpitations, orthopnea, paroxysmal nocturnal dyspnea, edema, light headedness, other Gastrointestinal: negative: Nausea, Vomiting, Abdominal Pain, Diarrhea, Constipation, Melena, Hematochezia, Other Genitourinary: negative: Dysuria, Frequency, Incontinence, Hematuria, Retention , Other Musculoskeletal: negative: Neck Pain, Shoulder Pain, Arm Pain, Back Pain, Hand Pain, Leg Pain, Foot Pain, Other Skin: negative: Rash, Lesions, Gennaro, Bruising, Other Neurological: negative: Weakness, Numbness, Incoordination, Change in Speech, Confusion, Seizures, Other - Medications/Allergies Allergies/Adverse Reactions: Allergies Allergy/AdvReac Type Severity Reaction Status Date / Time bleomycin Allergy Verified 01/17/18 05:50 codeine Allergy Verified 01/17/18 02:05 lisinopril Allergy Verified 01/17/18 02:05 meperidine [From Demerol] Allergy Verified 01/17/18 02:05 Medications: Current Medications Acetaminophen (Tylenol) 650 mg PO Q4H PRN PRN Reason: Headache/Fever or Pain Last Admin: 01/19/18 02:51 Dose: 650 mg Al Hydroxide/Mg Hydroxide (Maalox) 30 ml PO Q6H PRN PRN Reason: Heartburn or Indigestion Aspirin (Ecotrin) 325 mg PO DAILY [facility] Last Admin: 01/19/18 08:17 Dose: 325 mg Atorvastatin Calcium (Lipitor) 10 mg PO HS [facility] Last Admin: 01/18/18 20:55 Dose: 10 mg Benzonatate (Tessalon) 100 mg PO Q4H PRN PRN Reason: Cough Bisacodyl (Dulcolax) 10 mg PO DAILYPRN PRN PRN Reason: Constipation Calcium Carbonate (Tums) 1,000 mg PO Q4H PRN PRN Reason: Heartburn or Indigestion Clonidine (Catapres) 0.1 mg PO Q4H PRN PRN Reason: Systolic BP > 160 Dextrose/Water (Dextrose 50%) 25 gm SLOW IVP PRN PRN PRN Reason: Hypoglycemia Docusate Sodium (Colace) 100 mg PO BIDPRN PRN PRN Reason: Constipation Ergocalciferol (Drisdol) 1.25 mg PO Q7DAYS [facility] Fluconazole (Diflucan) 100 mg PO DAILY [facility] Last Admin: 01/19/18 08:17 Dose: 100 mg Glipizide (Glucotrol Xl) 5 mg PO QA[facility] Last Admin: 01/19/18 08:17 Dose: 5 mg Glucagon (Glucagon) 1 mg IM PRN PRN PRN Reason: Hypoglycemia Guaifenesin (Robitussin Sf) 200 mg PO Q4H PRN PRN Reason: Cough Last Admin: 01/18/18 05:26 Dose: 200 mg Heparin Sodium (Porcine) (Heparin) 5,000 units SC BID [facility] Last Admin: 01/19/18 08:17 Dose: Not Given Hydralazine HCl (Apresoline) 10 mg SLOW IVP Q4H PRN PRN Reason: Systolic BP > 170 Piperacillin Sod/Tazobactam (Sod 2.25 gm/ Sodium Chloride) 100 mls @ 200 mls/ hr IVPB Q6HR [facility] Last Admin: 01/19/18 06:51 Dose: 100 mls Dextrose/Water (D5w) 1,000 mls @ 0 mls/hr IV .Q0M PRN; As Directed PRN Reason: Hypoglycemia Sodium Chloride (Normal Saline 0.9%) 1,000 mls @ 75 mls/hr IV .[id number] [facility] Last Admin: 01/19/18 08:16 Dose: 1,000 mls Insulin Human Lispro (Humalog) 0 units SC .MODERATE SLIDING SC PRN PRN Reason: Moderate Correctional Scale Last Admin: 01/19/18 06:51 Dose: 2 unit Insulin Human Lispro (Humalog) 0 units SC .BEDTIME SLIDING SC PRN PRN Reason: Bedtime Correctional Scale Loratadine (Claritin) 10 mg PO DAILYPRN PRN PRN Reason: Sinus Symptoms Miscellaneous Medication (Pharmacy To Dose) 1 each IVPB PRN PRN PRN Reason: UTI Nitroglycerin (Nitrostat) 0.4 mg SL Q5MIN PRN PRN Reason: Chest Pain Non-Formulary Medication (Biotin [Biotin]) 5 mg PO DAILY [facility] Ondansetron HCl (Zofran) 4 mg IVP Q6H PRN PRN Reason: Nausea/Vomiting Pantoprazole Sodium (Protonix) 40 mg PO DAILY [facility] Last Admin: 01/19/18 08:17 Dose: 40 mg Potassium Chloride (Klor-Con 10) 10 meq PO BID-[facility] Last Admin: 01/19/18 08:17 Dose: 10 meq Senna (Senokot) 2 tab PO HSPRN PRN PRN Reason: Constipation Sodium Chloride (Flush - Normal Saline) 10 ml IV DAILY [facility] Last Admin: 01/19/18 08:18 Dose: Not Given Tramadol HCl (Ultram) 50 mg PO Q6H PRN PRN Reason: Pain >3 Last Admin: 01/17/18 15:42 Dose: 50 mg
[2018-01-19] MEDS: Atorvastatin Calcium 10 MG TAB PO SCH (20:49)
[2018-01-20] MEDS: Piperacillin/Tazobactam 2.25 GM in Sodium Chloride 0.9% 100 ML IVPB SCH ×2 (05:35→12:28)
[2018-01-20 06:05] LABS: Chloride 112 mmol/L (98-107); Potassium 3.5 mmol/L (3.5-5.1); Sodium 140 mmol/L (136-145)
[2018-01-20 06:06] LABS: Calcium 8.6 mg/dL (7.8-10.44); Glucose 64 mg/dL (83-110)
[2018-01-20 06:08] LABS: Anion Gap 14 mmol/L (10-20); Carbon Dioxide 18 mmol/L (23-31)
[2018-01-20 06:10] LABS: BUN (Urea Nitrogen) 19 mg/dL (9.8-20.1); Calc. Creatinine Clearance 62 mL/min (70-130); Estimated GFR-MDRD 38
[2018-01-20 06:16] LABS: Anisocytosis MODERATE=16-30 cells (100X) (0-5/hpf); Band 5 % (5-11); Hemoglobin 8.2 g/dL (12.0-16.0); Lymphocytes 59 % (21-51); MDiff Complete? YES; Mean Corpuscular Hemoglobin 34.3 pg (27.0-31.0); Mean Platelet Volume 8.1 fL (7.4-10.4); Monocytes 13 % (0-10); Neutrophil 23 % (42-75); Platelet Count 450 thou/uL (130-400); RBC Distribution Width 18.7 % (11.5-14.5); Red Blood Cell (RBC) Count 2.39 mill/uL (4.20-5.40); White Blood Cell (WBC) Count 3.5 thou/uL (4.8-10.8)
[2018-01-20] MEDS: Aspirin 325 mg Enteric Coated Tablet PO SCH (10:30)
[2018-01-20] MEDS: Fluconazole 100 MG TAB PO SCH (10:30)
[2018-01-20] MEDS: Potassium Chloride 10 MEQ TAB PO SCH ×2 (10:30→17:57)
[2018-01-20] MEDS: Heparin 5,000 UNITS/ML VIAL SC SCH ×2 (10:30→20:45)
[2018-01-20] MEDS: Sodium Chloride 0.9% 1,000 ML IV SCH (10:32)
[2018-01-20] MEDS: Non-Formulary Item 1 EACH (Biotin [Biotin] 5 MG) PO SCH ×2 (10:46→12:08)
--- NOTE | 2018-01-20 12:24 | PDOC.PN ---
- Subjective Encounter Start Date: 01/20/18 Encounter Start Time: 12:19 Subjective: feels much better again today.actually walked 50 feet w PT -: denies any SOB.some left sided weakness persists ,but better - Objective Resuscitation Status: Resuscitation Status FULL:Full Resuscitation MAR Reviewed: Yes Vital Signs & Weight: Vital Signs (12 hours) Temp Pulse Resp BP Pulse Ox 01/20/18 11:54 98.2 F 78 16 100 01/20/18 08:00 98.4 F 82 18 99 01/20/18 03:00 98.0 F 96 18 138/72 94 L Weight Admit Weight 229 lb 9.6 oz Weight 229 lb 9.6 oz I&O: 01/19/18 01/20/18 01/21/18 06:59 06:59 06:59 Intake Total 2937 1385 Balance 2937 1385 Result Diagrams: 01/20/18 04:57 01/20/18 04:57 Additional Labs: Accuchecks 01/20/18 01/20/18 01/20/18 10:52 05:38 04:59 POC Glucose 109 87 69 L 01/19/18 01/19/18 20:27 16:43 POC Glucose 123 H 132 H Microbiology 01/16/18 17:45 Urine Straight Catheter Urine Culture - Final Escherichia coli 01/16/18 17:22 Venous blood - Right Hand Blood Culture - Final Coagulase Neg Staphylococcus Coagulase Neg Staphylococcus#2 01/16/18 17:22 Venous blood - Left Hand Blood Culture - Preliminary NO GROWTH AT 48 HOURS Laboratory Tests 01/16/18 01/17/18 01/18/18 16:56 05:44 04:48 Creatinine 2.13 H 1.83 H 1.59 H 01/19/18 01/20/18 04:38 04:57 Creatinine 1.61 H 1.36 H Phys Exam - Physical Examination Constitutional: NAD sitting up on the side of bed,pale HEENT: PERRLA, moist MMs, sclera anicteric, 2+ tonsils Neck: no JVD Respiratory: no wheezing, no rales, no rhonchi, clear to auscultation bilateral Cardiovascular: RRR, no significant murmur Gastrointestinal: soft, non-tender, no distention, positive bowel sounds Musculoskeletal: no edema, pulses present Neurological: non-focal, normal sensation, moves all 4 limbs Psychiatric: normal affect, A&O x 3 Skin: no rash Dx/Plan (1) Acute CVA (cerebrovascular accident) Code(s): I63.9 - CEREBRAL INFARCTION, UNSPECIFIED Status: Acute Comment: Watershed infarct ,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 (2) UTI (urinary tract infection) Status: Acute Qualifiers: Urinary tract infection type: acute cystitis Hematuria presence: with hematuria Qualified Code(s): N30.01 - Acute cystitis with hematuria Comment: cochran sensitive E.Coli (3) FELIX (acute kidney injury) Code(s): N17.9 - ACUTE KIDNEY FAILURE, UNSPECIFIED Status: Acute (4) Sepsis Code(s): A41.9 - SEPSIS, UNSPECIFIED ORGANISM Status: Acute Comment: due to UTI (5) Anemia Code(s): D64.9 - ANEMIA, UNSPECIFIED Status: Resolved Qualifiers: Anemia type: bone marrow failure Bone marrow failure anemia type: other bone marrow failure Qualified Code(s): D61.89 - Other specified aplastic anemias and other bone marrow failure syndromes Comment: Improved with PRBC.monitor.Henry acute on Chronic given H/O Hodgkins (6) Altered mental status Code(s): R41.82 - ALTERED MENTAL STATUS, UNSPECIFIED Status: Resolved Comment: Likley due to Sepsis.. (7) Hodgkin lymphoma Code(s): C81.90 - HODGKIN LYMPHOMA, UNSPECIFIED, UNSPECIFIED SITE Status: Chronic Qualifiers: Hodgkin lymphoma type: unspecified type (8) Left-sided weakness Code(s): R53.1 - WEAKNESS Status: Acute Comment: due to Acute CVA (9) Leucopenia Code(s): D72.819 - DECREASED WHITE BLOOD CELL COUNT, UNSPECIFIED Status: Acute Qualifiers: Leukopenia type: neutropenia Neutropenia type: other Qualified Code(s): D70.8 - Other neutropenia Comment: Likley due to BM failure from Hodgkins exacerbated by physiological stress.monitor - Plan continue antibiotics, PT/OT, respiratory therapy, incentive spirometry, DVT proph w/SCDs cont ABx for E.coli UTI ,pansensitive. -: family requesting SNIF/rehab now instead of HH as discussed earlier -: will arrange. -: pt needs to keep appt w [facility] on Saturday for hodgkins -: likley recurrance w low blood counts & lympohocytosis * .working better with PT. * cont ASA for new stroke. Review of Systems - Review of Systems Constitutional: weakness. negative: fever, chills, sweats, malaise, other Eyes: negative: Pain, Vision Change, Conjunctivae Inflammation, Eyelid Inflammation, Redness, Other ENT: negative: Ear Pain, Ear Discharge, Nose Pain, Nose Discharge, Nose Congestion, Mouth Pain, Mouth Swelling, Throat Pain, Throat Swelling, Other Respiratory: negative: Cough, Dry, Shortness of Breath, Hemoptysis, SOB with Excertion, Pleuritic Pain, Sputum, Wheezing Cardiovascular: negative: chest pain, palpitations, orthopnea, paroxysmal nocturnal dyspnea, edema, light headedness, other Gastrointestinal: negative: Nausea, Vomiting, Abdominal Pain, Diarrhea, Constipation, Melena, Hematochezia, Other Genitourinary: negative: Dysuria, Frequency, Incontinence, Hematuria, Retention , Other Musculoskeletal: negative: Neck Pain, Shoulder Pain, Arm Pain, Back Pain, Hand Pain, Leg Pain, Foot Pain, Other Neurological: Weakness - Medications/Allergies Allergies/Adverse Reactions: Allergies Allergy/AdvReac Type Severity Reaction Status Date / Time bleomycin Allergy Verified 01/17/18 05:50 codeine Allergy Verified 01/17/18 02:05 lisinopril Allergy Verified 01/17/18 02:05 meperidine [From Demerol] Allergy Verified 01/17/18 02:05 Medications: Current Medications Acetaminophen (Tylenol) 650 mg PO Q4H PRN PRN Reason: Headache/Fever or Pain Last Admin: 01/19/18 17:16 Dose: 650 mg Al Hydroxide/Mg Hydroxide (Maalox) 30 ml PO Q6H PRN PRN Reason: Heartburn or Indigestion Aspirin (Ecotrin) 325 mg PO DAILY [facility] Last Admin: 01/20/18 10:30 Dose: 325 mg Atorvastatin Calcium (Lipitor) 10 mg PO HS [facility] Last Admin: 01/19/18 20:49 Dose: 10 mg Benzonatate (Tessalon) 100 mg PO Q4H PRN PRN Reason: Cough Bisacodyl (Dulcolax) 10 mg PO DAILYPRN PRN PRN Reason: Constipation Calcium Carbonate (Tums) 1,000 mg PO Q4H PRN PRN Reason: Heartburn or Indigestion Clonidine (Catapres) 0.1 mg PO Q4H PRN PRN Reason: Systolic BP > 160 Dextrose/Water (Dextrose 50%) 25 gm SLOW IVP PRN PRN PRN Reason: Hypoglycemia Docusate Sodium (Colace) 100 mg PO BIDPRN PRN PRN Reason: Constipation Ergocalciferol (Drisdol) 1.25 mg PO Th@0900 [facility] Fluconazole (Diflucan) 100 mg PO DAILY [facility] Last Admin: 01/20/18 10:30 Dose: 100 mg Glucagon (Glucagon) 1 mg IM PRN PRN PRN Reason: Hypoglycemia Guaifenesin (Robitussin Sf) 200 mg PO Q4H PRN PRN Reason: Cough Last Admin: 01/18/18 05:26 Dose: 200 mg Heparin Sodium (Porcine) (Heparin) 5,000 units SC BID [facility] Last Admin: 01/20/18 10:30 Dose: 5,000 units Hydralazine HCl (Apresoline) 10 mg SLOW IVP Q4H PRN PRN Reason: Systolic BP > 170 Piperacillin Sod/Tazobactam (Sod 2.25 gm/ Sodium Chloride) 100 mls @ 200 mls/ hr IVPB Q6HR [facility] Last Admin: 01/20/18 05:35 Dose: 100 mls Dextrose/Water (D5w) 1,000 mls @ 0 mls/hr IV .Q0M PRN; As Directed PRN Reason: Hypoglycemia Sodium Chloride (Normal Saline 0.9%) 1,000 mls @ 75 mls/hr IV .[id number] [facility] Last Admin: 01/20/18 10:32 Dose: Not Given Insulin Human Lispro (Humalog) 0 units SC .MODERATE SLIDING SC PRN PRN Reason: Moderate Correctional Scale Last Admin: 01/19/18 12:10 Dose: 2 unit Insulin Human Lispro (Humalog) 0 units SC .BEDTIME SLIDING SC PRN PRN Reason: Bedtime Correctional Scale Loratadine (Claritin) 10 mg PO DAILYPRN PRN PRN Reason: Sinus Symptoms Miscellaneous Medication (Pharmacy To Dose) 1 each IVPB PRN PRN PRN Reason: UTI Nitroglycerin (Nitrostat) 0.4 mg SL Q5MIN PRN PRN Reason: Chest Pain Ondansetron HCl (Zofran) 4 mg IVP Q6H PRN PRN Reason: Nausea/Vomiting Pantoprazole Sodium (Protonix) 40 mg PO DAILY [facility] Last Admin: 01/20/18 10:30 Dose: 40 mg Potassium Chloride (Klor-Con 10) 10 meq PO BID-[facility] Last Admin: 01/20/18 10:30 Dose: 10 meq Senna (Senokot) 2 tab PO HSPRN PRN PRN Reason: Constipation Sodium Chloride (Flush - Normal Saline) 10 ml IV DAILY [facility] Last Admin: 01/20/18 10:32 Dose: Not Given Tramadol HCl (Ultram) 50 mg PO Q6H PRN PRN Reason: Pain >3 Last Admin: 01/17/18 15:42 Dose: 50 mg
[2018-01-20] MEDS ORDERED: Lorazepam 1 MG TAB PO PRN (12:28)
[2018-01-20] MEDS: Atorvastatin Calcium 10 MG TAB PO SCH (20:45)
[2018-01-21] MEDS: Sodium Chloride 0.9% 1,000 ML IV SCH ×3 (00:27→16:38)
[2018-01-21 06:09] LABS: Anion Gap 12 mmol/L (10-20); BUN (Urea Nitrogen) 16 mg/dL (9.8-20.1); Calc. Creatinine Clearance 66 mL/min (70-130); Calcium 8.7 mg/dL (7.8-10.44); Carbon Dioxide 20 mmol/L (23-31); Chloride 109 mmol/L (98-107); Estimated GFR-MDRD 41; Glucose 128 mg/dL (83-110); Potassium 3.3 mmol/L (3.5-5.1); Sodium 138 mmol/L (136-145)
[2018-01-21 06:55] LABS: Anisocytosis SLIGHT = 6-15 cells (100X) (0-5/hpf); Band 6 % (5-11); Eosinophils 1 % (0-10); Hemoglobin 7.9 g/dL (12.0-16.0); Lymphocytes 49 % (21-51); MDiff Complete? YES; Macrocytosis SLIGHT = 6-15 cells (100X) (0-5/hpf); Mean Corpuscular Hemoglobin 33.1 pg (27.0-31.0); Monocytes 14 % (0-10); Neutrophil 30 % (42-75); Platelet Count 518 thou/uL (130-400); RBC Distribution Width 18.2 % (11.5-14.5); Red Blood Cell (RBC) Count 2.37 mill/uL (4.20-5.40); White Blood Cell (WBC) Count 4.1 thou/uL (4.8-10.8)
[2018-01-21] MEDS: Fluconazole 100 MG TAB PO SCH (09:02)
[2018-01-21] MEDS: Heparin 5,000 UNITS/ML VIAL SC SCH ×2 (09:03→20:36)
[2018-01-21] MEDS: Potassium Chloride 10 MEQ TAB PO SCH ×2 (09:12→17:41)
[2018-01-21] MEDS: Aspirin 325 mg Enteric Coated Tablet PO SCH (09:14)
[2018-01-21] MEDS: Acetaminophen 325 MG TAB PO PRN (09:14)
--- NOTE | 2018-01-21 09:18 | PDOC.PN ---
- Subjective Encounter Start Date: 01/21/18 Encounter Start Time: 09:16 Subjective: alert, still weak on left - Objective Resuscitation Status: Resuscitation Status FULL:Full Resuscitation MAR Reviewed: Yes Vital Signs & Weight: Vital Signs (12 hours) Temp Pulse Resp BP Pulse Ox 01/21/18 07:35 98.7 F 87 28 H 126/68 97 01/21/18 04:00 99.0 F 87 19 157/78 H 96 01/21/18 00:00 98.9 F 82 20 151/68 H 99 Weight Admit Weight 229 lb 9.6 oz Weight 229 lb 9.6 oz I&O: 01/20/18 01/21/18 01/22/18 06:59 06:59 06:59 Intake Total 3065 Balance 3065 Result Diagrams: 01/21/18 05:24 01/21/18 05:24 Additional Labs: Accuchecks 01/20/18 01/20/18 01/20/18 20:45 16:37 10:52 POC Glucose 126 H 113 H 109 Phys Exam - Physical Examination Neck: no JVD Respiratory: clear to auscultation bilateral Cardiovascular: RRR, no significant murmur Gastrointestinal: soft, non-tender, no distention, positive bowel sounds Musculoskeletal: no edema moderate L spastic hemiplegia Dx/Plan (1) FELIX (acute kidney injury) Code(s): N17.9 - ACUTE KIDNEY FAILURE, UNSPECIFIED Status: Acute (2) Acute CVA (cerebrovascular accident) Code(s): I63.9 - CEREBRAL INFARCTION, UNSPECIFIED Status: Acute Comment: Watershed infarct ,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 (3) Left-sided weakness Code(s): R53.1 - WEAKNESS Status: Acute Comment: due to Acute CVA (4) Leucopenia Code(s): D72.819 - DECREASED WHITE BLOOD CELL COUNT, UNSPECIFIED Status: Acute Qualifiers: Leukopenia type: neutropenia Neutropenia type: other Qualified Code(s): D70.8 - Other neutropenia Comment: Likley due to BM failure from Hodgkins exacerbated by physiological stress.monitor (5) UTI (urinary tract infection) Status: Acute Qualifiers: Urinary tract infection type: acute cystitis Hematuria presence: with hematuria Qualified Code(s): N30.01 - Acute cystitis with hematuria Comment: cochran sensitive E.Coli (6) Hodgkin lymphoma Code(s): C81.90 - HODGKIN LYMPHOMA, UNSPECIFIED, UNSPECIFIED SITE Status: Chronic Qualifiers: Hodgkin lymphoma type: unspecified type (7) Altered mental status Code(s): R41.82 - ALTERED MENTAL STATUS, UNSPECIFIED Status: Resolved Comment: [place] due to Sepsis.. (8) Atrial fibrillation Code(s): I48.91 - UNSPECIFIED ATRIAL FIBRILLATION Status: Acute - Plan watershed infarct worrisome with hx of atrial fib -: cont PT/OT -: cont po antibx -: transfer to [facility] in progress * .
--- NOTE | 2018-01-21 16:26 | PDOC.EVN ---
Event Note - Event Note Event Note: spoke with Samuel Hargrove at [facility]. they are in process of transfer to [facility] ED.
[2018-01-21] MEDS: Atorvastatin Calcium 10 MG TAB PO SCH (20:35)
[2018-01-22 05:37] LABS: Anion Gap 12 mmol/L (10-20); BUN (Urea Nitrogen) 15 mg/dL (9.8-20.1); Calc. Creatinine Clearance 71 mL/min (70-130); Calcium 8.8 mg/dL (7.8-10.44); Carbon Dioxide 21 mmol/L (23-31); Chloride 107 mmol/L (98-107); Estimated GFR-MDRD 45; Glucose 110 mg/dL (83-110); Potassium 3.4 mmol/L (3.5-5.1); Sodium 137 mmol/L (136-145)
[2018-01-22 05:54] LABS: Anisocytosis SLIGHT = 6-15 cells (100X) (0-5/hpf); Band 4 % (5-11); Hemoglobin 8.2 g/dL (12.0-16.0); Lymphocytes 45 % (21-51); MDiff Complete? YES; Mean Corpuscular HGB CONC 33.5 g/dL (32.0-36.0); Mean Corpuscular Hemoglobin 33.9 pg (27.0-31.0); Mean Platelet Volume 7.9 fL (7.4-10.4); Monocytes 8 % (0-10); Neutrophil 43 % (42-75); PLT Morphology Comment Appears Increased; Platelet Count 568 thou/uL (130-400); RBC Distribution Width 18.5 % (11.5-14.5); Red Blood Cell (RBC) Count 2.42 mill/uL (4.20-5.40); White Blood Cell (WBC) Count 4.1 thou/uL (4.8-10.8)
--- NOTE | 2018-01-22 07:10 | PDOC.PN ---
- Subjective Encounter Start Date: 01/22/18 Encounter Start Time: 07:08 Subjective: alert, no change - Objective Resuscitation Status: Resuscitation Status FULL:Full Resuscitation MAR Reviewed: Yes Vital Signs & Weight: Vital Signs (12 hours) Temp Pulse Resp BP Pulse Ox 01/22/18 03:33 98.6 F 90 16 128/62 98 01/21/18 23:14 99.0 F 83 18 148/66 H 97 01/21/18 20:25 98.8 F 88 16 01/21/18 19:20 98.8 F 88 16 147/71 H 99 Weight Admit Weight 229 lb 9.6 oz Weight 229 lb 9.6 oz I&O: 01/21/18 01/22/18 01/23/18 06:59 06:59 06:59 Intake Total 3065 2275 Balance 3065 2275 Result Diagrams: 01/22/18 05:14 01/22/18 05:14 Additional Labs: Accuchecks 01/22/18 01/21/18 01/21/18 05:43 20:58 17:23 POC Glucose 112 H 146 H 110 01/21/18 10:48 POC Glucose 151 H Phys Exam - Physical Examination Neck: no JVD Respiratory: clear to auscultation bilateral Cardiovascular: RRR, no significant murmur Gastrointestinal: soft, positive bowel sounds Musculoskeletal: no edema Dx/Plan (1) FELIX (acute kidney injury) Code(s): N17.9 - ACUTE KIDNEY FAILURE, UNSPECIFIED Status: Acute (2) Acute CVA (cerebrovascular accident) Code(s): I63.9 - CEREBRAL INFARCTION, UNSPECIFIED Status: Acute Comment: Watershed infarct ,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 (3) Left-sided weakness Code(s): R53.1 - WEAKNESS Status: Acute Comment: due to Acute CVA (4) Leucopenia Code(s): D72.819 - DECREASED WHITE BLOOD CELL COUNT, UNSPECIFIED Status: Acute Qualifiers: Leukopenia type: neutropenia Neutropenia type: other Qualified Code(s): D70.8 - Other neutropenia Comment: Likley due to BM failure from Hodgkins exacerbated by physiological stress.monitor (5) UTI (urinary tract infection) Status: Acute Qualifiers: Urinary tract infection type: acute cystitis Hematuria presence: with hematuria Qualified Code(s): N30.01 - Acute cystitis with hematuria Comment: cochran sensitive E.Coli (6) Hodgkin lymphoma Code(s): C81.90 - HODGKIN LYMPHOMA, UNSPECIFIED, UNSPECIFIED SITE Status: Chronic Qualifiers: Hodgkin lymphoma type: unspecified type (7) Altered mental status Code(s): R41.82 - ALTERED MENTAL STATUS, UNSPECIFIED Status: Resolved Comment: Likley due to Sepsis.. (8) Atrial fibrillation Code(s): I48.91 - UNSPECIFIED ATRIAL FIBRILLATION Status: Acute - Plan cont current plan of care, plan discussed w/ family, PT/OT creat cont to decrease slowly -: no real change in L spastic hemiplegia -: awaiting confirmation of transfer to [facility] * .
[2018-01-22] MEDS: Aspirin 325 mg Enteric Coated Tablet PO SCH (08:43)
[2018-01-22] MEDS: Fluconazole 100 MG TAB PO SCH (08:43)
[2018-01-22] MEDS: Potassium Chloride 10 MEQ TAB PO SCH (08:43)
[2018-01-22] MEDS: Heparin 5,000 UNITS/ML VIAL SC SCH (08:43)
--- NOTE | 2018-01-22 08:45 | DIS ---
DATE OF ADMISSION: 01/16/2018 DATE OF DISCHARGE: 01/22/2018 PRIMARY CARE PROVIDER: Dr. Lopez De La Torre. DISPOSITION: Transferred to [facility] for continuing care. 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 DISCHARGE MEDICATIONS: Tramadol 50 mg p.o. q.6 hours p.r.n., Klor-Con 10 twice a day, Protonix 40 mg a day, Levaquin 500 mg p.o. daily, Diflucan 100 mg p.o. daily, Tums 1000 mg p.o. q.4 hours p.r.n., T essalon 100 mg p.o. q.4 hours p.r.n., Lipitor 10 mg at bedtime, aspirin 325 mg a day. ALLERGIES: Noted to BLEOMYCIN CODEINE, LISINOPRIL and DEMEROL. CODE STATUS: FULL. PENDING AT THE TIME OF DISCHARGE: Nothing. HOSPITAL COURSE: The patient admitted to the [facility] through [facility] with altered mental status and weakness on the left side. Her mental status resolved quic kly. She did have spastic hemiplegia on the left. Diagnosis of acute stroke was made. She was foun d to have a urinary tract infection. Antibiotics were started. Initial studies; CT of the brain, no acute intracranial abnormality. CT angiography, no high-grade stenosis involving major arterial sys tems of the head and neck. Chest x-ray: Cardiomegaly with no focal infiltrate of CHF. The patient was placed in the hospital on aspirin, statins. Consultation with Dr. Vilma Giraldo, Neurology was obta ined. MRI of the brain was requested. Echocardiogram revealed EF of 60%-65% with 2/3 diastolic dysf unction. Brain MRI, acute right watershed distribution of infarction in the frontal parietooccipital area. Patient on my exam has had a moderate left spastic hemiplegia with profound weakness in the u pper arm and marked dysdiadochokinesis of the left arm and spasticity of the left leg last noted by Viet Giraldo. She was evaluated by PT/OT. PERTINENT LABORATORY DATA: Admitting white count was 6.9. The remainder of her white counts was low in the 2.8-4.3 region. Her hemoglobin was 6.1, transfused to 8.3 and has remained in the 8 plus or minus region. The platelet count has remained in the 400-500,000 range. Her initial creatinine was 2.13 with BUN of 38 with a GFR of about 23 with sodium of 130. With fluids, her creatinine has dropp ed to 1.19, BUN 15, sodium 137. Blood sugars remained in the 100-150 range. Because of her history of Hodgkin's lymphoma and bone marrow transplant, patient and family had requested transfer to [facility]. Work on this was started and it is currently completed. She has a bed at [facility] to be t ransferred to. FINAL DIAGNOSES: 1. Acute CVA with watershed distribution and left moderate spastic hemiplegia. 2. Acute renal failure, now chronic kidney disease stage III level which I am informed is baseline f or her. 3. Mild neutropenia. 4. Anemia. 5. Urinary tract infection. PROCEDURES: None. On 01/21/2018 night, transferred with [facility] admission note. They are agr eeable with taking her in transfer. She does have a history of atrial fibrillation with chemotherapy at one point, but no history otherwise or watershed distribution. It is worrisome to me for paroxys mal atrial fibrillation. The patient and family did not wish her workup here, but to be evaluated at [facility], she is being transferred there. In conversation with [facility] accepting physician , I discussed the possibility of [facility], long-term monitoring, etc. At the time of discharge, patient i s alert, cooperative. Currently her neurological exam is nonfocal. No significant difference in the right and left side. Mental status is normal. The patient is being transferred for continuing eval uation of her neurological status, renal function, neutropenia, and anemia. In addition, she had UTI with Escherichia coli, pansensitive during her hospital stay that was adequately treated with antibi otics during her hospital stay.
[2018-01-22 08:57] VITALS: BP 152/77; TEMP 98.9
[2018-01-22] MEDS: Acetaminophen 325 MG TAB PO PRN (09:16)
[2018-01-22] MEDS: Diabetic Tussin 200 MG/10 ML UDCUP PO PRN (09:16)
[2018-01-22] MEDS: Sodium Chloride 0.9% 1,000 ML IV SCH (11:09)
[2018-01-23] MEDS ORDERED: Ergocalciferol 1.25 MG(50,000 UNITS) CAP PO SCH (09:00)
== END 2018-01-22 09:42 | disposition short-term general hospital (02) | DRG 871 ==
LOC: ERS 16:36 → 2SE 18:20
PROVIDERS: ADMIT Internal Medicine; ATTEND Internal Medicine
PROC: 30233N1 Transfusion of Nonautologous Red Blood Cells into Peripheral Vein, Percutaneous Approach (ICD-10-PCS; principal; 2018-01-16)
DX: A41.9 Sepsis, unspecified organism (principal); I63.9 Cerebral infarction, unspecified; N17.9 Acute kidney failure, unspecified; Z94.81 Bone marrow transplant status; D70.9 Neutropenia, unspecified; Z94.84 Stem cells transplant status; C81.90 Hodgkin lymphoma, unspecified, unspecified site; I48.91 Unspecified atrial fibrillation; G51.0 Bell's palsy; N30.01 Acute cystitis with hematuria; E87.1 Hypo-osmolality and hyponatremia; G81.94 Hemiplegia, unspecified affecting left nondominant side; N18.3 Chronic kidney disease, stage 3 (moderate); E11.22 Type 2 diabetes mellitus with diabetic chronic kidney disease; D53.9 Nutritional anemia, unspecified; F32.9 Major depressive disorder, single episode, unspecified; R29.710 NIHSS score 10; Z86.718 Personal history of other venous thrombosis and embolism; Z79.84 Long term (current) use of oral hypoglycemic drugs; Z79.82 Long term (current) use of aspirin; R47.1 Dysarthria and anarthria; R93.8 Abnormal findings on diagnostic imaging of other specified body structures; I12.9 Hypertensive chronic kidney disease with stage 1 through stage 4 chronic kidney disease, or unspecified chronic kidney disease; B96.20 Unspecified Escherichia coli [E. coli] as the cause of diseases classified elsewhere; B96.1 Klebsiella pneumoniae [K. pneumoniae] as the cause of diseases classified elsewhere; B96.89 Other specified bacterial agents as the cause of diseases classified elsewhere
CPT/HCPCS: 36415; 36416; 36430; 51701; 70450; 70496; 70498; 70551; 71045; 80048; 80053; 80061; 81003; 81015; 82553; 83605; 83880; 84484; 85025; 85060; 85610; 85730; 86850; 86900; 86901; 87040; 87077; 87086; 87149; 87186; 93005; 93306; 93970; 96361; 96365; A4216; A4353; C9113; G8978-GP-CM; G8979-GP-CI; G8987-GO-CM; G8988-GO-CK; G8996-GN-CI; G8996-GN-CK; G8997-GN-CH; G8997-GN-CI; G9165-GN-CL; G9166-GN-CI; J1644; J2543; J3370; J7050; P9016